=== PATIENT | male | born 1930 | race African-American/Black ===

== ENCOUNTER 2018-04-30 15:54 | Inpatient (IN) | payer MEDICARE, OTHER ==
[~2018-04-30] VITALS: Ht 188 cm; Wt 92.1 kg
[2018-04-30 16:16] VITALS: BP 154/97
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
--- NOTE | 2018-04-30 16:19 | ER.PDOC ---
General Chief Complaint: Medical Clearance Stated Complaint: MEDICAL CLEARANCE/ worsening dementia TRAVEL OUT OF US: No Time seen by MD: 16:22 Source: patient Exam Limitations: no limitations History of Present Illness Timing/Duration: 1 week Severity: moderate Modifying Factors: improves with rest Associated Symptoms: denies symptoms Allergies: Coded Allergies: No Known Allergies (Unverified , 04/30/18) Home Meds Active Scripts Trazodone Hcl (TRAZODONE HCL) 50 Mg Tablet, 50 MG PO HS for 30 Days, TABLET Prov:VIRGIE PARKS DATA REVIEW SPECIALIST 05/07/18 Risperidone (RISPERDAL) 0.25 Mg Tablet, 0.25 MG PO BID for 30 Days, TABLET Prov:VIRGIE PARKS DATA REVIEW SPECIALIST 05/07/18 Past Medical History Medical History: no pertinent history Surgical History: other Social History Smoking: non-smoker Alcohol Use: none Drug Use: none Reviewed Nursing Reviewed: Vital Signs, Abn. Noted Review of Systems All Other Systems: Reviewed and Negative Physical Exam General Appearance: No Apparent Distress EENT: eyes nml inspection Neck: Non-Tender Respiratory: chest non-tender CVS: reg rate & rhythm Gastrointestinal: Normal Bowel Sounds Rectal: Normal Exam Extremities: Normal Range of Motion Neurologic/Psychiatric: before school II-XII NML as Tested Skin: Normal Color Lymphatic: No Adenopathy Results/Orders Results/Orders Laboratory Tests Test 04/30/18 16:15 04/30/18 16:25 Urine Collection Type UNKNOWN Urine Color YELLOW (YELLOW) Urine Appearance SLIGHTLY CLOUDY (CLEAR) Urine Bilirubin NEGATIVE MG/DL (NEGATIVE) Urine Ketones 5 mg/dL (NEGATIVE) Urine Specific [place] 1.025 (1.005-1.035) Urine pH 5 (5.0-6.0) Urine Protein 15 mg/dL (NEGATIVE) Urine Urobilinogen NORMAL (NEGATIVE) Urine Nitrate NEGATIVE (NEGATAIVE) Urine Leukocyte Esterase NEGATIVE (NEGATIVE) Urine Blood 25 1+ (NEGATIVE) Urine RBC 2-5 RBC/HPF (NONE SEEN) Urine WBC 0-2 WBC/HPF (0-2) Urine Squamous Epithelial Cells RARE #/HPF (FEW) Urine Amorphous Sediment SMALL (NONE SEEN) Urine Bacteria FEW (NONE SEEN) Urine Hyaline Casts 0-1 (NONE SEEN) Urine Fine Granular Casts 0-1 Urine Glucose NORMAL (NEGATIVE) Urine Opiates, Qualitative NEGATIVE ng/mL (CUT-OFF:300) Urine Methadone, Qualitative NEGATIVE ng/mL (CUT-OFF:300) Urine Amphetamine Qualitative NEGATIVE ng/mL (CUTOFF:1000) Urine Barbiturates, Qualitative NEGATIVE ng/mL (CUT-OFF:200) Urine Phencyclidine Screen NEGATIVE ng/mL (CUT-OFF:25) Urine MDMA (Ecstasy), Qualitative NEGATIVE ng/mL (CUT-OFF:300) Urine Benzodiazepines Screen NEGATIVE ng/mL (CUT-OFF:200) Urine Cocaine Qualitative NEGATIVE ng/mL (CUT-OFF:300) Ur Tetrahydrocannabinol (THC) Scrn NEGATIVE ng/mL (CUT-OFF:50) White Blood Count 5.6 10^3/uL (4.5-11.0) Red Blood Count 4.79 10^6/uL (4.50-5.90) Hemoglobin 13.7 g/dL (13.9-16.3) Hematocrit 42.7 % (37.0-53.0) Mean Corpuscular Volume 89.1 fL (78-100) Mean Corpuscular Hemoglobin 28.6 pg (26-34) Mean Corpuscular Hemoglobin Concent 32.1 g/dL (33-37) Red Cell Distribution Width 14.9 % (11.5-14.5) Platelet Count 211 10^3/uL (150-400) Mean Platelet Volume 9.9 fL (7.8-11.0) Neutrophils (%) (Auto) 47.8 % (41.0-85.0) Lymphocytes (%) (Auto) 41.9 % (24.0-44.0) Monocytes (%) (Auto) 9.5 % (5.0-12.0) Neutrophils # (Auto) 2.7 10^3/uL (1.8-7.7) Lymphocytes # (Auto) 2.3 10^3/uL (1.0-4.8) Monocytes # (Auto) 0.5 10^3/uL (0.3-0.8) Absolute Immature Granulocyte (auto 0.01 10^3 u/L (0-2) Eosinophils % 0.4 % (0.0-5.0) Basophils % 0.2 % (0.0-0.2) Basophils # 0.0 10^3/uL (0.0-0.1) Eosinophil Count 0.0 10^3/uL (0.0-0.2) Prothrombin Time 10.4 SEC (9.8-11.9) Prothrombin Time INR (Non-Therap) 1.0 Activated Partial Thromboplast Time 21.8 SEC (24.67-30.72) Sodium Level 139 mmol/L (132-145) Potassium Level 3.8 mmol/L (3.6-5.2) Chloride Level 104.0 mmol/L (96-109) Carbon Dioxide Level 26.3 mmol/L (20.0-32) Anion Gap 12.5 Blood Urea Nitrogen 25 mg/dL (7-18) Creatinine 1.18 mg/dL (0.59-1.40) Estimated GFR () 70.5 (>/=60) BUN/Creatinine Ratio 21.0 Glucose Level 129 mg/dL (70-110) Calcium Level 9.6 mg/dL (8.4-10.5) Total Bilirubin 0.6 mg/dL (0.2-1.0) Aspartate Amino Transf (AST/SGOT) 26 U/L (0-35) Alanine Aminotransferase (ALT/SGPT) 34 U/L (12-78) Alkaline Phosphatase 105 U/L (50-136) Total Creatine Kinase 386 U/L (39-308) Troponin I < 0.02 ng/mL (0.00-0.05) Pro-B-Type Natriuretic Peptide 20 pg/mL (0-450) Total Protein 8.7 g/dL (6.4-8.2) Albumin 4.8 g/dL (3.4-5.0) Globulin 3.9 Vitamin B12 Level 377 pg/mL (193-986) Thyroid Stimulating Hormone (TSH) 2.630 mIU/mL (0.358-3.740) Percent Immature Gran (Cell Imm) 0.20 % (0.00-0.50) Microbiology Date/Time Source Procedure Growth Status 04/30/18 16:15 Urine,Void Urine Culture - Final Complete EKG/XRAY/CT/US EKG: NSR Course Sepsis Screening Results: Posi: POSITIVE SEPSIS RISK Vitals & review Data Vital Sign - Last 24 Hours 04/30/18 04/30/18 04/30/18 04/30/18 16:13 16:14 16:16 17:24 Temp 97.6 97.6 97.6 97.6 97.6 97.6 97.6 97.6 Pulse 96 96 96 96 Resp 18 18 18 18 B/P (MAP) 154/97 (116) 154/76 (102) Pulse Ox 94 94 94 O2 Delivery Room Air Room Air Room Air Laboratory Tests Test 04/30/18 16:15 04/30/18 16:25 Urine Collection Type UNKNOWN Urine Color YELLOW Urine Appearance SLIGHTLY CLOUDY Urine Bilirubin NEGATIVE MG/DL Urine Ketones 5 mg/dL Urine Specific [place] 1.025 Urine pH 5 Urine Protein 15 mg/dL Urine Urobilinogen NORMAL Urine Nitrate NEGATIVE Urine Leukocyte Esterase NEGATIVE Urine Blood 25 1+ Urine RBC 2-5 RBC/HPF Urine WBC 0-2 WBC/HPF Urine Squamous Epithelial Cells RARE #/HPF Urine Amorphous Sediment SMALL Urine Bacteria FEW Urine Hyaline Casts 0-1 Urine Fine Granular Casts 0-1 Urine Glucose NORMAL Urine Opiates, Qualitative NEGATIVE ng/mL Urine Methadone, Qualitative NEGATIVE ng/mL Urine Amphetamine Qualitative NEGATIVE ng/mL Urine Barbiturates, Qualitative NEGATIVE ng/mL Urine Phencyclidine Screen NEGATIVE ng/mL Urine MDMA (Ecstasy), Qualitative NEGATIVE ng/mL Urine Benzodiazepines Screen NEGATIVE ng/mL Urine Cocaine Qualitative NEGATIVE ng/mL Ur Tetrahydrocannabinol (THC) Scrn NEGATIVE ng/mL White Blood Count 5.6 10^3/uL Red Blood Count 4.79 10^6/uL Hemoglobin 13.7 g/dL Hematocrit 42.7 % Mean Corpuscular Volume 89.1 fL Mean Corpuscular Hemoglobin 28.6 pg Mean Corpuscular Hemoglobin Concent 32.1 g/dL Red Cell Distribution Width 14.9 % Platelet Count 211 10^3/uL Mean Platelet Volume 9.9 fL Neutrophils (%) (Auto) 47.8 % Lymphocytes (%) (Auto) 41.9 % Monocytes (%) (Auto) 9.5 % Neutrophils # (Auto) 2.7 10^3/uL Lymphocytes # (Auto) 2.3 10^3/uL Monocytes # (Auto) 0.5 10^3/uL Absolute Immature Granulocyte (auto 0.01 10^3 u/L Eosinophils % 0.4 % Basophils % 0.2 % Basophils # 0.0 10^3/uL Eosinophil Count 0.0 10^3/uL Prothrombin Time 10.4 SEC Prothrombin Time INR (Non-Therap) 1.0 Activated Partial Thromboplast Time 21.8 SEC Sodium Level 139 mmol/L Potassium Level 3.8 mmol/L Chloride Level 104.0 mmol/L Carbon Dioxide Level 26.3 mmol/L Anion Gap 12.5 Blood Urea Nitrogen 25 mg/dL Creatinine 1.18 mg/dL Estimated GFR () 70.5 BUN/Creatinine Ratio 21.0 Glucose Level 129 mg/dL Calcium Level 9.6 mg/dL Total Bilirubin 0.6 mg/dL Aspartate Amino Transf (AST/SGOT) 26 U/L Alanine Aminotransferase (ALT/SGPT) 34 U/L Alkaline Phosphatase 105 U/L Total Creatine Kinase 386 U/L Troponin I < 0.02 ng/mL Pro-B-Type Natriuretic Peptide 20 pg/mL Total Protein 8.7 g/dL Albumin 4.8 g/dL Globulin 3.9 Vitamin B12 Level 377 pg/mL Thyroid Stimulating Hormone (TSH) 2.630 mIU/mL Percent Immature Gran (Cell Imm) 0.20 % Microbiology 04/30/18 Urine Culture - Final, Complete Departure Time of Disposition: 17:00 Disposition: 01 HOME, SELF-CARE Impression: Primary Impression: Dementia Condition: Stable Referrals: PCP,UNKNOWN (PCP) PRIMARY CARE PROVIDER Scripts Trazodone Hcl (TRAZODONE HCL) 50 Mg Tablet 50 MG PO HS for 30 Days, TABLET Prov: VIRGIE PARKS DATA REVIEW SPECIALIST 05/07/18 Risperidone (RISPERDAL) 0.25 Mg Tablet 0.25 MG PO BID for 30 Days, TABLET Prov: VIRGIE PARKS DATA REVIEW SPECIALIST 05/07/18 Duration or Time Spent with Pa: 2 hrs MARISSA CID MD Apr 30, 2018 16:19
--- NOTE | 2018-04-30 16:23 | PCM.EKG ---
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
[2018-04-30 16:33] LABS: BASOPHIL % 0.2 % (0.0-0.2); EOSINOPHIL % 0.4 % (0.0-5.0); HEMOGLOBIN 13.7 g/dL (13.9-16.3); LYMPHOCYTES # 2.3 10^3/uL (1.0-4.8); LYMPHOCYTES % 41.9 % (24.0-44.0); MEAN CELL HGB 28.6 pg (26-34); MEAN CELL HGB CONCENTRATION 32.1 g/dL (33-37); MEAN CORP VOLUME 89.1 fL (78-100); MEAN PLATELET VOLUME 9.9 fL (7.8-11.0); MONOCYTES # 0.5 10^3/uL (0.3-0.8); MONOCYTES % 9.5 % (5.0-12.0); NEUTROPHIL # 2.7 10^3/uL (1.8-7.7); NEUTROPHILS % 47.8 % (41.0-85.0); RED CELL DISTRIBUTION WIDTH 14.9 % (11.5-14.5); WHITE BLOOD CELL 5.6 10^3/uL (4.5-11.0)
--- NOTE | 2018-04-30 16:37 | DIREP ---
PROCEDURE:CHEST 1 VIEW COMPARISON:None. INDICATIONS:medical clearance FINDINGS: LUNGS/PLEURA:No significant pulmonary parenchymal abnormalities. No effusions. VASCULATURE:Normal. Unremarkable pulmonary vasculature. CARDIAC:Normal. No cardiac silhouette abnormality or cardiomegaly. MEDIASTINUM:Atherosclerotic aorta with no visible aneurysm. BONES:Degenerative changes of the spine and shoulders. OTHER:Negative. CONCLUSION:No acute cardiopulmonary disease . Dictated by: Chavo De Jesus M.D. on 04/30/2018 at 04:33 PM
[2018-04-30 16:52] LABS: APPEARANCE,URINE SLIGHTLY CLOUDY (CLEAR); BILIRUBIN,URINE NEGATIVE (NEGATIVE); UA COLOR YELLOW (YELLOW); UROBILINOGEN,URINE NORMAL (NEGATIVE)
[2018-04-30 17:15] LABS: ALANINE AMINOTRANSFERASE(ML) 34 U/L (12-78); ALKALINE PHOSPHATASE 105 U/L (50-136); ASPARTATE AMINO TRANSFERASE 26 U/L (0-35); CALCIUM 9.6 mg/dL (8.4-10.5); CARBON DIOXIDE 26.3 mmol/L (20.0-32); GLUCOSE 129 mg/dL (70-110)
--- NOTE | 2018-04-30 17:23 | NUR ---
JOE CID ON PHONE FOR PT ADMIT CONSULT. ORFALY ACCEPTED.
[2018-04-30 17:24] VITALS: BP 154/76
[2018-04-30 17:52] VITALS: BP 154/76
[2018-04-30] MEDS ORDERED: ATIVAN PO PRN (18:30)
[2018-04-30] MEDS ORDERED: HALDOL PO PRN (18:30)
[2018-04-30] MEDS ORDERED: HALDOL IM PRN (18:30)
[2018-04-30] MEDS ORDERED: ATIVAN IM PRN (18:30)
--- NOTE | 2018-04-30 19:30 | NUR ---
ADMISSION PT ADMITTED TO UNIT. SPOKE WITH DR GRANGER. PT SHOWING FLIGHT OF IDEAS AND FIXATED ON A [place] THAT HE LIVES CLOSE BY. PT REFUSES TO SPEAK WITH DAUGHTER OR ALLOW HER TO COME TO UNIT AT THIS TIME.
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
[2018-04-30 19:59] VITALS: BP 130/72
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
--- NOTE | 2018-04-30 20:16 | NUR ---
MMSE SCORE 4: FINDINGS INDICATE SEVERE IMPAIRMENT BUT AT THIS TIME PT DID NOT WANT TO FULLY PARTICIPATE IN ASSESSMENT. SW WILL REATTEMPT AT A LATER TIME IF PT IS ABLE TO ANSWER QUESTIONS APPROPRIATELY AND WANT TO PARTICIPATE IN ASSESSMENT. Addendum: 04/30/18 at 2022 by Namita DOE Amended: Links added.
--- NOTE | 2018-04-30 20:21 | NUR ---
BIOPSYCHOSOCIAL: NADER UNABLE TO COMPLETE BIOPSYCHOSOCIAL. PT'S DAUGHTER GAVE SOME HISTORY BEFORE SHE LEFT. PT DID NOT WANT TO PARTICIPATE IN ASSESSMENTS AT THIS TIME AND UNABLE TO ANSWER APPROPRIATELY AT THIS TIME. NADER WILL REATTEMPT AT A LATER TIME IF PT IS ABLE AND WILLING TO PARTICIPATE. Addendum: 04/30/18 at 2022 by Namita DOE Amended: Links added.
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
[2018-04-30] MEDS: RISPERDAL PO SCH (20:41)
[2018-04-30] MEDS: DESYREL PO SCH (20:41)
--- NOTE | 2018-05-01 04:09 | NUR ---
PIRP- P- ALTERED THOUGHT PROCESS,ALTERATION IN MOOD AND SLEEP DISTURBANCE AND ELOPEMENT RISK. I- PROVIDE MEDICATION ORDERED,PROVIDE SAFE AND SUPPORTIVE ENVIRONMENT, Q 15 MIN. MONITORING, PROVIDED 1:1 INTERVENTION ALLOWING PT. TO EXPRESS THOUGHTS AND FEELINGS. R- PT. WAS ORIENTED TO NAME AND STATED ZELDA JUST PASSED BUT DID NOT SAY THE MONTH WHEN ASKED AND STATED IT WAS 17 WHEN ASKED THE YEAR. PT. ONLY ANSWERED THE QUESTIONS HE WANTED TO. REFUSED SKIN ASSESSMENT,TO GIVE STAFF HIS CELL PHONE,CHECK BOOK ,WALLET AND BELT. HE DENIED DEPRESSION,ANXIETY,PAIN AND SI. DID NOT EAT THE DINNER MEAL PROVIDED BUT DID EAT A PACKAGE OF POTATO CHIPS AND DRANK A SODA POP. PT. EXPRESSED THAT HE DID NOT WANT TO BE HERE AND THAT HIS CAR WAS OUTSIDE AND HE WAS GOING TO BE LEAVING. HE STATED HE HAD NOT HAD FLU VACCINE AND STATED HE WOULD LIKE TO HAVE IT TOMORROW BEFORE HE GOES HOME. PT. WANDERED IN THE HALLWAY AT TIMES ASKING WHERE THE TRANSPORTATION WAS AND ASKED TO TALK TO SOMEONE IN CHARGE OF TRANSPORTATION. DIRECTOR CASE,MARGI VILA, VISITED WITH PT. RESTING IN BED WITH EYES CLOSED AT THIS TIME. P- WILL CONTINUE WITH CURRENT TX. PLAN.
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
[2018-05-01 08:23] VITALS: BP 133/59
[2018-05-01] MEDS: RISPERDAL PO SCH ×2 (09:27→20:04)
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
--- NOTE | 2018-05-01 11:04 | PRM.PN ---
Mood: UP AND DOWN Sleep: SLEPT 6.75 HOURS LAST NIGHT Appetite: NORMAL APPETITE Suidical thoughts: NONE REPORTED Homicidal thoughts: NONE REPORTED Recent stressors: STRESS OF MENTAL ILLNESS Family support: DAUGHTER THAT LIVES IN [place] Aggressive Behavior: NONE REPORTED Ability to Perform ADL'sc: ABLE TO PERFORM ADLS Psychotic sympstoms: DELUSIONAL THINKING, PARANOIA, DENIES HALLUCINATIONS Manic Symptoms: MOOD SWINGS Living situation: LIVES BY HIMSELF IN [place] Illicit Drug usec: NONE REPORTED Alcoholo use: NONE REPORTED Tobacco use: NONE REPORTED Anxity Symptoms: MODERATE ANXIETY LEVEL Anger/Irritablility: SOME ANGER AND IRRITABILITY Muscle Strength & Tone: WNL Gait & Station: WN Appearance: Well groomed/hygience, Casual attire, Appears age stated Attitude & Behaviour: Uncooperative, Good eye contact Mood & Affect: Euthymic/appr/congruent, Iabile Orientation: Disoriented to place, Disoriented to situation Attention/Concentration: Fair attention, Fair concentration Speech: Reg rate/vol/rhyth/prosod Judgement/Insight: Poor judgement, Poor insight Thought Process: Linear/goal directed Language: Georgian Thought content/Abnormal/Psych: Delusions Fund of Knowledge: Other Associations: PABLITO Memory (recent and remote): Recent memory repaired, Remote memory repaired Constitutional: None Neurological: None Psychiatric: Anxious, Psychosis [place] I: DELUSIONAL DISORDER, DEMENTIA, ANXIETY [place] II: DEFERRED [place] III: REFER TO PMH/MEDICAL CHART [place] IV: STRESS OF MENTAL ILLNESS [place] V: GAF=25 Assessment/Plan Assessment/Plan Assessment/Plan Vital Signs Date Time Temp Pulse Resp B/P (MAP) Pulse Ox O2 Delivery O2 Flow Rate FiO2 05/01/18 08:23 97.9 67 18 133/59 (83) 96 Room Air 97.9 Allergies Coded Allergies No Known Allergies (Tejsnmmqdy75/28/18) I & O 04/30/18 16:14 Thru 05/01/18 10:00 Intake Total 912 ml Balance 912 ml Current Medications Medications (Trade) Dose Ordered Sig/Hugh Route Start Time Stop Time Status Last Admin Dose Admin Risperidone (Risperdal) 0.25 mg BID PO 04/30/18 21:00 05/30/18 20:59 05/01/18 09:27 0.25 MG Trazodone HCl (Desyrel) 50 mg HS PO 04/30/18 21:00 05/30/18 20:59 04/30/18 20:41 50 MG THE PATIENT WAS SEEN BY DR. GRANGER VIA TELEMEDICINE EQUIPMENT ALONG WITH NURSING STAFF. THE PATIENT SLEPT WELL LAST NIGHT. THE PATIENT HAS A NORMAL APPETITE. THE PATIENT HAS BEEN TAKING HIS MEDICATIONS. THE PATIENT REPORTS HIS MOOD IS "FINE." THE PATIENT WAS VERY TALKATIVE. THE PATIENT WAS ABLE TO STATE HIS NAME. THE PATIENT WAS NOT HAVING MANIC OR HYPOMANIC SYMPTOMS TODAY. THE PATIENT DENIES HALLUCINATIONS. THE PATIENT WAS REPORTEDLY HAVING HALLUCINATIONS AND DELUSIONS IN THE RECENT PAST. THE PATIENT WAS DISORIENTED TO PLACE, TIME, AND SITUATION TODAY. HE KNEW THE DAY WAS THURSDAY. HE KNEW HE WAS IN [place]. ASSESSMENT: DELUSIONAL DISORDER; GENERALIZED ANXIETY DISORDER; DEMENTIA WITH BEHAVIOR PROBLEMS PLAN: 1) CONTINUE BEHAVIORAL HEALTH MANAGEMENT. 2) CONTINUE CURRENT MEDICATIONS. THE PATIENT AND STAFF WERE AGREEABLE WITH THE PLAN. 30 MINUTES SPENT IN SUPPORTIVE THERAPY AND INSIGHT ORIENTED THERAPY. DR. GRANGER SPOKE WITH THE PATIENT'S DAUGHTER THE PATIENT DENIES SI OR HI. Problems: (1) Delusional disorder Status: Acute ICD Code: F22 - Delusional disorders SNOMED: 61106169 (2) Dementia Status: Acute ICD Code: F03.90 - Unspecified dementia without behavioral disturbance SNOMED: [id number] Patient History: Patient reports no known family medical history. ARELI GRANGER IV, MD May 01, 2018 11:04
--- NOTE | 2018-05-01 12:40 | NUR ---
DR. JOE DIAZ HERE TO SEE PATIENT. NO NEW ORDERS RECEIVED @ THIS TIME.
--- NOTE | 2018-05-01 16:11 | NUR ---
PIRP P: ALTERED THOUGHT PROCESS, ALTERATION IN MOOD, CONFUSION I: MONITOR FOR CHANGES IN USUAL BEHAVIOR, Q15 MIN MONITORING, REDIRECT WITH VERBALIZATION, GIVE CLEAR AND SIMPLE INSTRUCTIONS, PROVIDE 1:1 TO ENCOURAGE EXPRESSION OF FEELINGS, PROVIDE TASK-ORIENTED ACTIVITIES, GIVE MEDICATIONS ORDERED, EDUCATE REGARDING INVOLUNTARY ADMISSION, ASSESS FOR DELUSIONS, ASSIST WITH DIFFERENTIATING BETWEEN INTERNAL AND EXTERNAL REALITY R: PT HAS BEEN PLEASANT MAJORITY OF SHIFT, IRRITABLE @ TIMES WITH VERBAL REDIRECTION. HAS NOT EXHIBITED THREATENING OR COMBATIVE BEHAVIORS, HAS NOT BEEN AN ELOPEMENT RISK. DENIES FEELINGS OF DEPRESSION, ANXIETY, SI/HI. DENIES HAVING HALLUCINATIONS, EXHIBITS VARYING DELUSIONS R/T CIRCUMSTANCES LEADING TO ADMISSION. EXHIBITS POOR SHORT-TERM MEMORY, HAS CIRCUMSTANTIAL SPEECH. HAS TAKEN MEDICATIONS ORDERED, HAS NOT PARTICIPATED IN GROUP ACTIVITIES, BUT DOES INITIATE INTERACTION WITH STAFF ON 1:1 BASIS. INTERACTS APPROPRIATELY WHEN APPROACHED. ALERT AND ORIENTED TO SELF, STATE, AND MONTH. P: CONTINUE TO PROVIDE DISCHARGE PLANNING INFORMATION AND INVOLVE PATIENT IN TREATMENT PLAN.
--- NOTE | 2018-05-01 19:37 | HPH ---
ADMIT DATE: 04/30/2018 The patient admitted to the behavioral health unit bed #212. CHIEF COMPLAINT: Psychosis with agitation. HISTORY OF PRESENT ILLNESS: This is an 87-year-old male who is admitted to our hospital to the Behavioral Unit for adjustment and treatment for his psychosis. The patient has been significantly agitated. However, according to his daughter, he has not been taking any medications. Today, I could obtain some history from him, which included that he did have in the past prostate cancer for which he had surgery and followed by chemotherapy. Otherwise, he denies any other medical problem. PAST MEDICAL HISTORY: Prostate cancer. ALLERGIES: No known drug allergy. HOME MEDICATIONS: None. SOCIAL HISTORY: The patient does not smoke, drink or use any illicit drugs. He is a retired . REVIEW OF SYSTEMS: Fourteen systems reviewed with the patient, all were negative except for what has been mentioned above. PHYSICAL EXAMINATION: VITAL SIGNS: Temperature 97.6, pulse 96, respiration 18, blood pressure 154/76, O2 sat 94% on room air. HEENT: Pupils reactive. Conjunctivae intact. Sclerae are anicteric. Nares patent. Earlobes intact. Throat clear. NECK: No JVD, no thyromegaly, no bruits, no lymphadenopathy, no masses. No tracheal deviation. HEART: Regular rhythm, no murmur, no gallop. CHEST: Clear. No rales, no crackles. Breath sounds are audible on both sides. ABDOMEN: Soft. No hepatosplenomegaly. No organomegaly. Bowel sounds active, no tenderness. EXTREMITIES: No cyanosis, clubbing or edema. Pulses are palpated at all sites with good amplitude. MUSCULOSKELETAL: No swelling, no tenderness, no deformities in the joints. Hand human resources benefits administrator is intact bilaterally. NEUROLOGIC: CN 2 to CN 12 are intact. No motor or sensory deficit. Deep tendon reflexes are equal bilaterally. SKIN: No ulcers, no rashes, no paleness. Normal skin turgor. MENTAL STATUS: The patient is awake, alert, oriented for time, place and person. LABORATORY DATA: CBC: White count 5.6, hemoglobin 13.7, hematocrit 42.7, platelet 211. Chemistry: Sodium 139, potassium 3.8, chloride 104, CO2 of 26.3, anion gap 12.5, BUN 25, creatinine 1.18, glucose 129 and hemoglobin A1c is 6.9. The TSH 2.63. The toxicology screening is negative. The chest x-ray unremarkable. DIAGNOSES: 1. Psychosis/bipolar disorder. 2. History of prostate cancer, status post surgery and chemotherapy in the past. 3. Elevated hemoglobin A1c, which is consistent with diabetes mellitus type 2. However, apparently his diabetes is currently controlled with diet, I am going to order for him 1800 calorie ADA diet and we will monitor closely. 4. Hypertension, which is borderline now. We will monitor closely and we may need to add some blood pressure medications down the road. LEONEL DIAZ MD DR: VIVIANA/russell JOB# [id number]
[2018-05-01 19:39] VITALS: BP_SYST 104; BP_SYST 127; BP_DIAS 61; BP_DIAS 72
[2018-05-01] MEDS: DESYREL PO SCH (20:04)
--- NOTE | 2018-05-02 04:21 | NUR ---
PIRP P: ALTERED THOUGHT PROCESS, ALTERATION IN MOOD, CONFUSION I: Q15 MONITORING, MONITORING FOR CHANGES IN BEHAVIOR, ASSESS FOR DELUSIONS, ENCOURAGE EXPRESSION OF FEELINGS, REORIENT NEEDED. R: PT HAS BEEN PLEASANT DURING THIS SHIFT WITH NO COMBATIVE OR VIOLENT BEHAVIOR, PT STAYED IN DAY ROOM FOR SEVERAL HOURS WATCHING TV AND INTERACTING WITH STAFF, DENIES ANY FEELINGS OF DEPRESSION OR ANXIETY, PT DOES STATE HE IS READY TO GO HOME, HAS NOT ATTEMPTED ELOPEMENT, HAS TAKEN MEDICATIONS ORDERED. P: CONTINUE TO PROVIDE DISCHARGE PLANNING INFORMATION AND INVOLVE PATIENT IN TREATMENT PLAN.
[2018-05-02 08:08] VITALS: BP 115/59
[2018-05-02] MEDS: RISPERDAL PO SCH ×2 (09:41→20:30)
--- NOTE | 2018-05-02 10:43 | PRM.PN ---
Mood: "ALRIGHT", DENIES FEELING DEPRESSED Sleep: SLEEPING WELL AT NIGHT Appetite: LOW/NORMAL APPETITE Suidical thoughts: NONE REPORTED Homicidal thoughts: NONE REPORTED Recent stressors: STRESS OF MENTAL ILLNESS Family support: DAUGHTER IS VERY SUPPORTIVE, GIRLFRIEND IN [place] Aggressive Behavior: NONE REPORTED Ability to Perform ADL'sc: YES Psychotic sympstoms: SOME DELUSIONAL THINKING RELATED TO HIS DEMENTIA, NO HALLUCINATIONS Manic Symptoms: NONE REPORTED Living situation: LIVES BY HIMSELF IN [place], [place] Illicit Drug usec: NONE REPORTED Alcoholo use: NONE REPORTED Tobacco use: NONE REPORTED Anxity Symptoms: MILD ANXIETY LEVEL Anger/Irritablility: LIMITED ANGER AND IRRITABILITY Muscle Strength & Tone: WNL Gait & Station: WNL Appearance: Well groomed/hygience, Casual attire, Normal weight, Appears age stated Attitude & Behaviour: Cooperative/Pleasant, Good eye contact Mood & Affect: Euthymic/appr/congruent Orientation: Disoriented to place, Disoriented to time, Disoriented to situation Attention/Concentration: Fair attention, Fair concentration Speech: Reg rate/vol/rhyth/prosod Judgement/Insight: Poor judgement, Poor insight Thought Process: Linear/goal directed Language: Urdu Thought content/Abnormal/Psych: None/normal Fund of Knowledge: WNL Associations: WNL/Normal Associations Memory (recent and remote): Gross int/not form assess Constitutional: None Neurological: None Psychiatric: None [place] I: DELUSIONAL DISORDER, DEMENTIA, GENERALIZED ANXIETY DISORDER [place] II: DEFERRED [place] III: REFER TO PMH/MEDICAL CHART [place] IV: STRESS OF MENTAL ILLNESS [place] V: GAF=30 Assessment/Plan Assessment/Plan Assessment/Plan Vital Signs Date Time Temp Pulse Resp B/P (MAP) Pulse Ox O2 Delivery O2 Flow Rate FiO2 05/02/18 08:08 98.0 58 18 115/59 (77) 94 Room Air 98.0 Allergies Coded Allergies No Known Allergies (Maggwjjxpv00/28/18) I & O 04/30/18 16:14 Thru 05/02/18 10:19 Intake Total 2086 ml Balance 2086 ml THE PATIENT WAS SEEN BY DR. GRANGER VIA TELEMEDICINE EQUIPMENT ALONG WITH NURSING STAFF. THE PATIENT SLEPT 6 HOURS LAST NIGHT. THE PATIENT HAS A LOW/NORMAL APPETITE. THE PATIENT HAS BEEN TAKING HIS MEDICATIONS WITHOUT SIDE EFFECTS. THE PATIENT IS AN INVOLUNTARY ADMISSION. THE PATIENT LIVES IN [place], [place]. THE PATIENT DENIES AUDITORY OR VISUAL HALLUCINATIONS. HE HAS HAD HALLUCINATIONS IN THE RECENT PAST. THE PATIENT HAS HAD ODD AND DELUSIONAL THINKING IN THE RECENT PAST. THE PATIENT'S DAUGHTER IS HELPING WITH DISCHARGE PLANNING. THE PATIENT IS A . THE PATIENT IS NOT HAVING MANIC OR HYPOMANIC SYMPTOMS. THE PATIENT REPORTS A STABLE ANXIETY LEVEL. THE PATIENT HAS BEEN PARTICIPATING IN GROUPS. THE PATIENT SHOULD NOT BE DRIVING A VEHICLE. ASSESSMENT: DELUSIONAL DISORDER; GENERALIZED ANXIETY DISORDER; DEMENTIA WITH BEHAVIOR PROBLEMS PLAN: 1) CONTINUE BEHAVIORAL HEALTH MANAGEMENT AT THE [facility]. 2) CONTINUE CURRENT MEDICATIONS. STAFF AGREEABLE WITH THE PLAN. SUPPORTIVE THERAPY GIVEN. THE PATIENT DENIES SI OR HI. SAFETY PLANS WERE DISCUSSED. RESEARCH EXECUTIVE WORKING WITH DAUGHTER ON DISCHARGE PLANNING. Problems: (1) Delusional disorder Status: Acute ICD Code: F22 - Delusional disorders SNOMED: 66302190 (2) Dementia Status: Acute ICD Code: F03.90 - Unspecified dementia without behavioral disturbance SNOMED: [id number] Patient History: Patient reports no known family medical history. ARELI GRANGER IV, MD May 02, 2018 10:43
--- NOTE | 2018-05-02 10:45 | NUR ---
TELEMED PT WAS SEEN BY DR. GRANGER VIA TELEMED. NO NEW ORDERS RECEIVED @ THIS TIME.
--- NOTE | 2018-05-02 17:12 | NUR ---
PIRP P: ALTERED THOUGHT PROCESS, ALTERATION IN MOOD, CONFUSION I: MONITOR FOR CHANGES IN USUAL BEHAVIOR, Q15 MIN MONITORING, GIVE CLEAR AND SIMPLE INSTRUCTIONS, TEACH APPROPRIATE BEHAVIORS, SET CLEAR AND APPROPRIATE BOUNDARIES, PROVIDE 1:1 TO ENCOURAGE EXPRESSION OF FEELINGS, ASSESS FOR DELUSIONS, ASSESS REASONS FOR IRRITABILITY, RE-ORIENT TO SURROUNDINGS NEEDED, GIVE MEDICATIONS ORDERED R: PT HAS PLEASANT AFFECT, IRRITABLE @ TIMES WITH REDIRECTION AND RE-ORIENTATION. DENIES DEPRESSION, ANXIETY, SI/HI. NO HALLUCINATIONS NOTED, EXHIBITS VARYING DELUSIONS R/T CONFUSION. PT VOICES WISHES TO "GET OUT" AND "GET BACK ON THE HIGHWAY," PT IS DIFFICULT TO REDIRECT WITH VERBALIZATION @ TIMES. HAS NOT BEEN EXIT SEEKING, HAS NOT EXHIBITED THREATENING OR COMBATIVE BEHAVIORS. CONTINUES TO HAVE CIRCUMSTANTIAL SPEECH AND DISORIENTATION. TAKES MEDICATIONS ORDERED WITH COAXING, DOES NOT PARTICIPATE IN GROUP ACTIVITIES. P: RE-ORIENT TO SURROUNDINGS AND SITUATION NEEDED.
[2018-05-02 20:09] VITALS: BP 157/89
[2018-05-02] MEDS: DESYREL PO SCH (20:30)
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
[2018-05-03 07:30] VITALS: BP 127/71
[2018-05-03] MEDS: RISPERDAL PO SCH ×2 (09:10→20:04)
--- NOTE | 2018-05-03 11:21 | NUR ---
[place] TEAM PT WAS SEEN BY DR. GRANGER VIA TELEMED. NO NEW ORDERS RECEIVED @ THIS TIME.
--- NOTE | 2018-05-03 11:26 | PRM.PN ---
Mood: UP AND DOWN, CAN BE IRRITABLE Sleep: SLEPT 4 HOURS LAST NIGHT Appetite: NORMAL APPETITE, "WANTS TO LOSE WEIGHT" Suidical thoughts: NONE REPORTED Homicidal thoughts: NONE REPORTED Recent stressors: STRESS OF MENTAL ILLNESS Family support: DAUGHTER IS VERY SUPPORTIVE Aggressive Behavior: NONE REPORTED Ability to Perform ADL'sc: YES Psychotic sympstoms: DELUSIONAL THINKIGN RELATED TO HIS DEMENTIA Manic Symptoms: NONE REPORTED Living situation: LIVES BY HIMSELF IN [place], [place], HE IS A Illicit Drug usec: NONE REPORTED Alcoholo use: NONE REPORTED Tobacco use: NONE REPORTED Anxity Symptoms: MODERATE ANXIETY LEVEL Anger/Irritablility: LIMITED ANGER, SOME IRRITABILITY Muscle Strength & Tone: WNL Gait & Station: WNL Appearance: Well groomed/hygience, Casual attire, Normal weight, Appears age stated Attitude & Behaviour: Cooperative/Pleasant, Good eye contact Mood & Affect: Euthymic/appr/congruent, Iabile Orientation: Disoriented to place, Disoriented to time, Disoriented to situation Attention/Concentration: Fair attention, Fair concentration Speech: Reg rate/vol/rhyth/prosod Judgement/Insight: Poor judgement, Poor insight Thought Process: Loose, Tangential Language: Setswana Thought content/Abnormal/Psych: Delusions Fund of Knowledge: WNL Associations: WNL/Normal Associations Memory (recent and remote): Recent memory repaired, Remote memory repaired Constitutional: Insomnia Neurological: None Psychiatric: None [place] I: DELUSIONAL DISORDER; GENERALIZED ANXIETY DISORDER; DEMENTIA WITH BEHAVIOR [place] II: DEFERRED [place] III: REFER TO PMH/MEDICAL CHART [place] IV: STRESS OF MENTAL ILLNESS, POOR MEMORY [place] V: GAF=30 Assessment/Plan Assessment/Plan Assessment/Plan Vital Signs Date Time Temp Pulse Resp B/P (MAP) Pulse Ox O2 Delivery O2 Flow Rate FiO2 05/03/18 07:30 97.9 57 18 127/71 (89) 92 97.9 05/02/18 20:09 Room Air Allergies Coded Allergies No Known Allergies (Venzltqxdn10/28/18) I & O 04/30/18 16:14 Thru 05/03/18 07:30 Intake Total 3262 ml Balance 3262 ml THE PATIENT WAS SEEN BY DR. GRANGER VIA TELEMEDICINE EQUIPMENT ALONG WITH THE TREATMENT TEAM. THE PATIENT SLEPT 4 HOURS LAST NIGHT. THE PATIENT HAS A NORMAL APPETITE. THE PATIENT WANTS TO LOSE WEIGHT. THE PATIENT REPORTS HIS MOOD IS "ALRIGHT." THE PATIENT DENIES FEELING DEPRESSED. THE PATIENT REPORTS A MODERATE ANXIETY LEVEL. THE PATIENT HAS BEEN TAKING HIS MEDICATIONS. THE PATIENT HAS BEEN PARTICIPATING IN GROUPS. THE PATIENT DENIES PARANOIA. THE PATIENT DENIES AUDITORY HALLUCINATIONS. THE PATIENT DENIES VISUAL HALLUCINATIONS. THE PATIENT DENIES MANIC OR HYPOMANIC SYMPTOMS. THE PATIENT STRUGGLES WITH CONFUSION. THE PATIENT KNEW TOMORROW WAS NEW YEARS DAY. THE PATIENT DID NOT KNOW THE YEAR. THE PATIENT DID NOT KNOW WHERE HE WAS TODAY. THE PATIENT DID NOT KNOW WHERE HE WAS TODAY. THE PATIENT WAS IN [place] BEFORE COMING INTO THIS FACILITY. THE PATIENT'S DAUGHTER IS WORKING ON DISCHARGE PLANNING. ASSESSMENT: DELUSIONAL DISORDER, GENERALIZED ANXIETY DISORDER, DEMENTIA WITH BEHAVIOR PROBLEMS PLAN: 1) CONTINUE BEHAVIORAL HEALTH MANAGEMENT AT THE [facility]. 2) CONTINUE MEDICATIONS AT CURRENT DOSES. THE PATIENT WAS AGREEABLE WITH THE PLAN. SUPPORTIVE THERAPY GIVEN. THE PATIENT DENIES SI OR HI. SAFETY PLANS WERE DISCUSSED. Problems: (1) Delusional disorder Status: Acute ICD Code: F22 - Delusional disorders SNOMED: 42032071 (2) Dementia Status: Acute ICD Code: F03.90 - Unspecified dementia without behavioral disturbance SNOMED: 63033605 Patient History: Patient reports no known family medical history. ARELI GRANGER IV, MD May 03, 2018 11:26
--- NOTE | 2018-05-03 17:13 | NUR ---
PIRP P: ALTERED THOUGHT PROCESS I: MONITOR FOR CHANGES IN USUAL BEHAVIOR, ASSESS FOR DELUSIONS, REDIRECT WITH VERBALIZATION, GIVE CLEAR AND SIMPLE INSTRUCTIONS, REINFORCE APPROPRIATE BEHAVIORS, PROVIDE SAFE AND SUPPORTIVE ENVIRONMENT, PROVIDE 1:1 TO ENCOURAGE EXPRESSION OF FEELINGS, ASSIST WITH DIFFERENTIATING BETWEEN INTERNAL AND EXTERNAL REALITY, Q15 MIN MONITORING R: PT IS ALERT AND ORIENTED TO SELF, MONTH, AND YEAR. UNABLE TO VERBALIZE WHY HE IS IN FACILITY, BELIEVES HE IS HERE BECAUSE HIS DAUGHTER CHANGED HER MIND ABOUT GOING TO [place] WITH HIM AND WANTING TO TAKE CONTROL OVER HIM D/T HER WORKING AT THE OR. PT IS DIFFICULT TO REDIRECT WITH VERBALIZATION, DOES NOT PARTICIPATE IN GROUP ACTIVITIES, BUT WILL SIT IN DAY ROOM WITH STAFF AND PEERS. INITIATES INTERACTION, HAS TAKEN MEDICATIONS ORDERED. EXHIBITS LOOSE ASSOCIATIONS WITH CIRCUMSTANTIAL SPEECH. P: CONTINUE TO REDIRECT WITH VERBALIZATION, ENCOURAGE PARTICIPATION IN GROUP ACTIVITIES.
[2018-05-03 19:33] VITALS: BP 128/69
[2018-05-03] MEDS: DESYREL PO SCH (20:04)
[2018-05-04 09:44] VITALS: BP 135/79
[2018-05-04] MEDS: RISPERDAL PO SCH ×2 (10:19→20:19)
--- NOTE | 2018-05-04 10:54 | NUR ---
TELEMED DR GRANGER SPOKE WITH DAUGHTER ON PHONE. PLAN TO DISCHARGE PT ON THURSDAY WITH DAUGHTER, AND TO GO TO [place] UNTIL THE WEATHER HAS CLEARED IN [place]. PT AGREES WITH THIS PLAN, AT THIS TIME. PT THEN SPOKE WITH DAUGHTER OVER PHONE AND STATED THAT HE IS SUPPOSE TO FLY FROM [place] TO [facility]. THIS NURSE RE ORIENTED PT TO DISCHARGE PLAN. PT VERBALIZES UNDERSTANDING
--- NOTE | 2018-05-04 11:01 | PRM.PN ---
Mood: "PRETTY GOOD", DENIES FEELING DEPRESSED Sleep: SLEPT WELL LAST NIGHT, NOT SLEEPING WELL RECENTLY Appetite: NORMAL APPETITE Suidical thoughts: NONE REPORTED Homicidal thoughts: NONE REPORTED Recent stressors: STRESS OF MENTAL ILLNES, STRESS OF POOR MEMORY Family support: HIS DAUGHTER IS VERY SUPPORTIVE AND HELPING HIM WITH PLACEMENT Aggressive Behavior: NONE REPORTED Ability to Perform ADL'sc: YES Psychotic sympstoms: DELUSIONAL THINKING RELATED TO HIS DEMENTIA Manic Symptoms: NONE REPORTED Living situation: LIVES IN [place], LIVES BY HIMSELF, WAS DRIVING HIMSELF Illicit Drug usec: NONE REPORTED Alcoholo use: NONE REPORTED Tobacco use: NONE REPORTED Anxity Symptoms: MILD ANXIETY LEVEL Anger/Irritablility: LIMITED ANGER AND IRRITABILITY Muscle Strength & Tone: WNL Gait & Station: WNL Appearance: Well groomed/hygience, Casual attire, Normal weight, Appears age stated Attitude & Behaviour: Cooperative/Pleasant, Good eye contact Mood & Affect: Euthymic/appr/congruent, Iabile Orientation: Disoriented to place, Disoriented to time, Disoriented to situation Attention/Concentration: Fair attention, Fair concentration Speech: Reg rate/vol/rhyth/prosod Judgement/Insight: Poor judgement, Poor insight Thought Process: Linear/goal directed Language: Trinidadian Thought content/Abnormal/Psych: Delusions Fund of Knowledge: WNL Associations: WNL/Normal Associations Memory (recent and remote): Recent memory repaired, Remote memory repaired Constitutional: None Neurological: None Psychiatric: None [place] I: DELUSIONAL DISORDER, DEMENTIA, GENERALIZED ANXIETY DISORDER [place] II: DEFERRED [place] III: REFER TO PMH/MEDICAL CHART [place] IV: STRESS OF MENTAL ILLNESS [place] V: GAF=30 Assessment/Plan Assessment/Plan Assessment/Plan Vital Signs Date Time Temp Pulse Resp B/P (MAP) Pulse Ox O2 Delivery O2 Flow Rate FiO2 05/04/18 09:44 97.8 58 20 135/79 (97) 95 Room Air 97.8 Allergies Coded Allergies No Known Allergies (Kzvrgokitn19/28/18) I & O 04/30/18 16:14 Thru 05/04/18 10:40 Intake Total 4933 ml Balance 4933 ml THE PATIENT WAS SEEN BY DR. GRANGER VIA TELEMEDICINE EQUIPMENT ALONG WITH THE TREATMENT TEAM. THE PATIENT SLEPT 9.25 HOURS LAST NIGHT. THE PATIENT HAS A NORMAL APPETITE. THE PATIENT ATE ALL HIS BREAKFAST THIS MORNING. THE PATIENT REPORTS HIS MOOD IS "PRETTY GOOD." THE PATIENT DENIES FEELING DEPRESSED TODAY. THE PATIENT REPORTS A STABLE ANXIETY LEVEL. THE PATIENT HAS BEEN TAKING HIS MEDICATIONS PER STAFF. THE PATIENT HAS BEEN PARTICIPATING IN GROUPS PER STAFF. THE PATIENT DENIES FEELING PARANOID. THE PATIENT DENIES AUDITORY HALLUCINATIONS. THE PATIENT DENIES VISUAL HALLUCINATIONS. THE PATIENT DENIES MANIC OR HYPOMANIC SYMPTOMS. THE PATIENT STRUGGLES WITH CONFUSION. THE PATIENT KNEW THE DATE TODAY. THE PATIENT DID NOT KNOW WHERE HE WAS TODAY. THE PATIENT WAS [place] BEFORE COMING INTO THIS FACILITY. THE PATIENT'S DAUGHTER IS WORKING ON DISCHARGE PLANNING. HE PLANS TO GO BACK TO [place] WITH A SITTER. HE SHOULD NOT BE DRIVING A CAR DUE TO HIS COGNITION. ASSESSMENT: DELUSIONAL DISORDER, GENERALIZED ANXIETY DISORDER, DEMENTIA WITH BEHAVIOR PROBLEMS PLAN: 1) CONTINUE BEHAVIORAL HEALTH MANAGEMENT AT THE [facility]. 2) CONTINUE MEDICATIONS AT CURRENT DOSES. THE PATIENT WAS AGREEABLE WITH THE PLAN. SUPPORTIVE THERAPY GIVEN. THE PATIENT DENIES SI OR HI. SAFETY PLANS WERE DISCUSSED. Problems: (1) Dementia Status: Acute ICD Code: F03.90 - Unspecified dementia without behavioral disturbance SNOMED: [id number] (2) Delusional disorder Status: Acute ICD Code: F22 - Delusional disorders SNOMED: [id number] Patient History: Patient reports no known family medical history. ARELI GRANGER IV, MD May 04, 2018 11:01
--- NOTE | 2018-05-04 16:49 | NUR ---
PIRP P: ALTERED THOUGHT PROCESS I: MONITOR FOR CHANGES IN USUAL BEHAVIOR, ASSESS FOR DELUSIONS, REDIRECT WITH VERBALIZATION, GIVE CLEAR AND SIMPLE INSTRUCTIONS, REINFORCE APPROPRIATE BEHAVIORS, PROVIDE SAFE AND SUPPORTIVE ENVIRONMENT, PROVIDE 1:1 TO ENCOURAGE EXPRESSION OF FEELINGS, ASSIST WITH DIFFERENTIATING BETWEEN INTERNAL AND EXTERNAL REALITY, Q15 MIN MONITORING R: PT HAS REMAINED IN A GOOD MOOD WITH A POSITIVE EFFECT. PT AGREES TO BEING DISCHARGED ON THURSDAY, TO GO TO [place] WITH HIS DAUGHTER UNTIL THE WEATHER HAS CLEARED IN [place]. P: CONTINUE WITH PLAN OF CARE TO DISCHARGED ON Thursday05/08/18
[2018-05-04 19:14] VITALS: BP 140/70
[2018-05-04] MEDS: DESYREL PO SCH (20:19)
--- NOTE | 2018-05-05 04:49 | NUR ---
-PIRP P: Altered thought process I: Q 15 minute monitoring, assess for hallucinations, monitor for changes in usual behavior, provide task oriented activities, provide 1:1 to encourage expression of feelings, give medications as ordered, provide safe and supportive environment. R: The patient presents with a bright and pleasant affect. He remained in day room prior to going to bed and interacted appropriately with staff and peers. The patient denies depression, suicidal or homicidal ideation, and hallucinations. The patient was compliant with evening medications. Thoughts are coherent compared to previous nights and speech is spontaneous. P: Continue with treatment plan. Will continue to monitor and maintain safety.
[2018-05-05 08:31] VITALS: BP 151/75
--- NOTE | 2018-05-05 08:45 | NUR ---
TELEMED PT SPOKE WITH DR GRANGER. STATES DEPRESSION 0/10 AND ANXIETY 0/10. NO NEW ORDERS RECEIVED AT THIS TIME. PLAN FOR DISCHARGE ON THURSDAY.
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
[2018-05-05] MEDS: RISPERDAL PO SCH ×2 (09:24→20:35)
--- NOTE | 2018-05-05 17:17 | NUR ---
PIRP P: ALTERED THOUGHT PROCESS I: MONITOR FOR CHANGES IN USUAL BEHAVIOR, ASSESS FOR DELUSIONS, REDIRECT WITH VERBALIZATION, GIVE CLEAR AND SIMPLE INSTRUCTIONS, REINFORCE APPROPRIATE BEHAVIORS, PROVIDE SAFE AND SUPPORTIVE ENVIRONMENT, PROVIDE 1:1 TO ENCOURAGE EXPRESSION OF FEELINGS, ASSIST WITH DIFFERENTIATING BETWEEN INTERNAL AND EXTERNAL REALITY, Q15 MIN MONITORING R: PT STATES MOOD IS GOOD AND DENIES SI. PT LIKES TO SIT AND REMINISCE ABOUT BEING YOUNGER AND BEING IN THE . NO BEHAVIORS NOTED. P: CONTINUE WITH PLAN OF CARE TO DISCHARGED ON Thursday05/08/18
[2018-05-05 19:10] VITALS: BP 100/63
[2018-05-05] MEDS: DESYREL PO SCH (20:35)
--- NOTE | 2018-05-06 04:16 | NUR ---
-PIRP P: Altered thought process I: Q 15 minute monitoring, assess for hallucinations, monitor for changes in usual behavior, provide task oriented activities, provide 1:1 to encourage expression of feelings, give medications as ordered, provide safe and supportive environment. R: The patient presents with a bright and pleasant affect. He remained in day room prior to going to bed and interacted appropriately with staff and peers. The patient denies depression, suicidal or homicidal ideation, and hallucinations. The patient was compliant with evening medications. The patient is coherent with spontaneous speech. No disturbance in sleep for the past three nights. The patient spoke with his daughter via phone. The daughter states the patient is "so much better". P: Will continue to monitor and maintain safety. Plan to discharge to daughter on 05/08/17 to safely transport back home.
[2018-05-06 07:52] VITALS: BP 146/86
[2018-05-06] MEDS: RISPERDAL PO SCH ×2 (08:14→20:36)
--- NOTE | 2018-05-06 14:29 | PRM.PN ---
Mood: DENIES DEPRESSION, STABLE Sleep: SLEPT WELL. Appetite: GOOD Suidical thoughts: DENIES Homicidal thoughts: DENIES Recent stressors: COGNITIVE DECLINE Family support: FAIR Aggressive Behavior: NONE NOTED Ability to Perform ADL'sc: GOOD Psychotic sympstoms: NONE NOTED Manic Symptoms: NONE Living situation: ALONE Illicit Drug usec: NONE Alcoholo use: NONE Tobacco use: NONE Family,PT,Surgical,&Current HX: (1) Dementia (2) Delusional disorder Anxity Symptoms: DENIES Anger/Irritablility: DENIES, NONE NOTED. Muscle Strength & Tone: WNL Gait & Station: WNL Appearance: Well groomed/hygience, Casual attire, Normal weight, Appears age stated Attitude & Behaviour: Cooperative/Pleasant, Good eye contact Mood & Affect: Euthymic/appr/congruent Attention/Concentration: Good attention, Good concentration Speech: Reg rate/vol/rhyth/prosod Judgement/Insight: Good judgement, Fair insight Thought Process: Linear/goal directed Language: Prydeinig Thought content/Abnormal/Psych: None/normal Fund of Knowledge: WN Associations: WNL/Normal Associations Memory (recent and remote): Recent memory repaired Constitutional: None Neurological: None Psychiatric: None [place] I: DELUSIONAL DISORDER, DEMENTIA [place] II: DEFERRED [place] III: SEE MEDICAL CHART/PMH [place] IV: DECREASED COGNITION [place] V: 35 Assessment/Plan Assessment/Plan Patient History: Patient reports no known family medical history. Plan Vital Signs Date Time Temp Pulse Resp B/P (MAP) Pulse Ox O2 Delivery O2 Flow Rate FiO2 05/06/18 07:52 97.8 66 20 146/86 (106) 98 Room Air 97.8 Allergies Coded Allergies Type Severity Reaction Last Updated Verified No Known Allergies 04/30/18 No Intake and Output 05/06/18 07:01 Intake Total 1564 ml Balance 1564 ml Intake Oral 1564 ml # Voids 5 # Bowel Movements 1 THE PATIENT WAS SEEN BY VIRGIE PARKS VIA TELEMEDICINE EQUIPMENT (SUPPORTED BY [facility]) ALONG WITH THE TREATMENT TEAM. HE REPORTS THAT HE IS EATING AND SLEEPING WELL. HE HAS A GOOD SENSE OF HUMOR. HE DENIES BEING DEPRESSED AND ANXIOUS. HE DENIES ANY PROBLEMS WITH HIS MEDICATIONS. HE IS DENIES AV/VH/SI/HI. HE IS VERY TALKATIVE. HE HAS NO ACUTE COMPLAINTS. HE REPORTS HAVING GOOD ENERGY. ASSESSMENT: DELUSIONAL DISORDER, DEMENTIA PLAN: 1. CONTINUE BEHAVIORAL HEALTH MANAGEMENT. PLAN TO DISCHARGE THURSDAY. 2. CONTINUE CURRENT MEDICATIONS PRESCRIBED. STAFF AGREEABLE WITH PLAN 3. ALL PATIENT QUESTIONS ANSWERED RELATED TO MEDICATIONS, PLAN OF CARE, AND EXPECTED OUTCOMES. 4. SAFETY PLAN DISCUSSED. VIRGIE PARKS NP May 06, 2018 14:29
--- NOTE | 2018-05-06 14:35 | NUR ---
TELEMED PT SPOKE WITH DR CHARLY CHESTER. NO NEW ORDERS RECEIVED. CONTINUE WITH PLAN OF CARE
--- NOTE | 2018-05-06 17:11 | NUR ---
PIRP P: ALTERED THOUGHT PROCESS I: MONITOR FOR CHANGES IN USUAL BEHAVIOR, ASSESS FOR DELUSIONS, REDIRECT WITH VERBALIZATION, GIVE CLEAR AND SIMPLE INSTRUCTIONS, REINFORCE APPROPRIATE BEHAVIORS, PROVIDE SAFE AND SUPPORTIVE ENVIRONMENT, R: PT STATES MOOD IS GOOD AND DENIES SI OR HALLUCINATIONS. PT REFUSED TO PLAY CARDS WITH US TODAY, BUT HAS REMAINED IN THE DAY ROOM WATCHING THE FOOTBALL GAME. NO BEHAVIORS NOTED, AND NO NEW ORDERS RECEIVED BY DR CHARLY CHESTER P: CONTINUE WITH PLAN OF CARE TO DISCHARGED ON Thursday05/08/18
[2018-05-06 20:20] VITALS: BP 123/78
[2018-05-06] MEDS: DESYREL PO SCH (20:36)
--- NOTE | 2018-05-07 04:19 | NUR ---
PIRP- P- ALTERED THOUGHT PROCESS I- PROVIDE MEDICATION ORDERED,PROVIDE SAFE AND SUPPORTIVE ENVIRONMENT AND Q 15 MIN. MONITORING R- PT. WAS ORIENTED TIMES 3 AND DENIES DEPRESSION AND ANXIETY AND DENIES SI . TOOK MEDICATION ORDERED. EXHIBITED NO INAPPROPRIATE BEHAVIORS. WATCHED BASKETBALL GAME ON TV. RESTING IN BED WITH EYES CLOSED AT THIS TIME. P- WILL CONTINUE WITH CURRENT TX. PLAN.
[2018-05-07 08:20] VITALS: BP 136/69
[2018-05-07] MEDS: RISPERDAL PO SCH ×2 (08:36→20:13)
[2018-05-07] MEDS ORDERED: TRAZ-124 PO (09:44)
[2018-05-07] MEDS ORDERED: RISP0.2518 PO (09:44)
--- NOTE | 2018-05-07 09:44 | PRM.PN ---
Mood: STABLE. DENIES DEPRESSION. Sleep: SLEPT 7.75 HOURS Appetite: GOOD Suidical thoughts: DENIES Homicidal thoughts: DENIES Recent stressors: RECENT HOSPITALIZATION Family support: GOOD Aggressive Behavior: NONE NOTED Ability to Perform ADL'sc: GOOD Psychotic sympstoms: NONE Manic Symptoms: NONE NOTED Living situation: ALONE Illicit Drug usec: DENIES Alcoholo use: DENIES Tobacco use: DENIES Family,PT,Surgical,&Current HX: (1) Dementia (2) Delusional disorder Anxity Symptoms: DENIES Anger/Irritablility: NONE NOTED Muscle Strength & Tone: WNL Gait & Station: WN Appearance: Well groomed/hygience, Casual attire, Normal weight, Appears age stated Attitude & Behaviour: Cooperative/Pleasant, Good eye contact Mood & Affect: Euthymic/appr/congruent Orientation: Fully oriented per interv Attention/Concentration: Good attention, Good concentration Speech: Reg rate/vol/rhyth/prosod Judgement/Insight: Fair judgement, Fair insight Thought Process: Linear/goal directed Language: Maltese Thought content/Abnormal/Psych: None/normal Fund of Knowledge: WNL Associations: WNL/Normal Associations Memory (recent and remote): Recent memory repaired Constitutional: None Neurological: None Psychiatric: None [place] I: DELUSIONAL DISORDER, DEMENTIA [place] II: DEFERRED [place] III: SEE MEDICAL CHART/PMH [place] IV: COGNITIVE DECLINE [place] V: 40 Assessment/Plan Assessment/Plan Patient History: Patient reports no known family medical history. Plan Vital Signs Date Time Temp Pulse Resp B/P (MAP) Pulse Ox O2 Delivery O2 Flow Rate FiO2 05/07/18 08:20 97.8 60 18 136/69 (91) 96 Room Air 97.8 Allergies Coded Allergies Type Severity Reaction Last Updated Verified No Known Allergies 04/30/18 No Intake and Output 05/07/18 07:01 Intake Total 1776 ml Balance 1776 ml Intake Oral 1776 ml # Voids 4 Problems Medical Problems: (1) Delusional disorder Status: Acute ICD Codes: F22 - Delusional disorders SNOMED: [id number] Problem Recorded: Apr 30, 2018 18:13 Last Edited By: Marcelino Chadwick MD - Gp on May 01, 2018 11:21 (2) Dementia Status: Acute ICD Codes: F03.90 - Unspecified dementia without behavioral disturbance SNOMED: [id number] Responsible Provider: Velasquez Salgado MD Problem Recorded: Apr 30, 2018 16:19 Last Edited By: Velasquez Salgado MD on May 01, 2018 11:04 THE PATIENT WAS SEEN BY VIRGIE PARKS VIA TELEMEDICINE EQUIPMENT ([facility]ED [facility]) ALONG WITH THE TREATMENT TEAM. HE IS DOING WELL OVERALL. HE DENIES DEPRESSION AND ANXIETY AT THIS TIME. HE IS EATING AND SLEEPING WELL. HE DENIES SI/HI/AV/VH. HE REPORTS HAVING GOOD ENERGY. HE IS VERY TALKATIVE. HE DENIES ANY SIDE EFFECTS WITH HIS MEDICATIONS. MOOD IS STABLE. ASSESSMENT: DELUSIONAL DISORDER, DEMENTIA PLAN: 1. CONTINUE BEHAVIORAL HEALTH MANAGEMENT. PLAN TO DISCHARGE TOMORROW WITH DAUGHTER. 2. CONTINUE CURRENT MEDICATIONS PRESCRIBED. STAFF AGREEABLE WITH PLAN 3. ALL PATIENT QUESTIONS ANSWERED RELATED TO MEDICATIONS, PLAN OF CARE, AND EXPECTED OUTCOMES. 4. SAFETY PLAN DISCUSSED. VIRGIE PARKS NP May 07, 2018 09:44
--- NOTE | 2018-05-07 17:49 | NUR ---
PIRP: P: altered thought process I: Provide medications as ordered by physician. Encourage attendance and participation of all groups. Allow patient to voice feelings and concerns. Assist patient in differentiating between internal and external reality. R: Patient has taken all medications as ordered and has been talkative and pleasant. Patient has been oriented x3. He is looking forward to being discharged tomorrow in care of his daughter. P: Continue current plan of care. Plans for discharge tomorrow.
[2018-05-07 19:48] VITALS: BP 146/87
[2018-05-07] MEDS: DESYREL PO SCH (20:13)
--- NOTE | 2018-05-08 04:52 | NUR ---
PIRP- P- ALTERED THOUGHT PROCESS, ALTERATION IN MOOD AND SLEEP DISTURBANCE I- PROVIDE SAFE AND SUPPORTIVE ENVIRONMENT,PROVIDE MEDICATION ORDERED,Q 15 MIN. MONITORING. R- ORIENTED TIMES THREE. DENIES DEPRESSION AND ANXIETY. DENIES SI TONIGHT. ATTENDED GROUP AND PARTICIPATED IN ACTIVITY. ATE SNACK. TOOK MEDICATION ORDERED. PLEASANT AFFECT. JOKES APPROPRIATELY WITH STAFF AND PEERS. INITIATED INTERACTION. HAS RESTED IN BED WITH EYES CLOSED FOR 4.5 HOURS TONIGHT. P- WILL CONTINUE WITH CURRENT TX. PLAN.
[2018-05-08 07:42] VITALS: BP 144/77
[2018-05-08] MEDS: RISPERDAL PO SCH (08:28)
--- NOTE | 2018-05-08 09:15 | PRM.PN ---
Mood: DENIES DEPRESSION. STABLE Sleep: SLEPT 6 HOURS Appetite: GOOD Suidical thoughts: DENIES Homicidal thoughts: DENIES Recent stressors: COGNITIVE DECLINE Family support: GOOD Aggressive Behavior: NONE Ability to Perform ADL'sc: GOOD Psychotic sympstoms: DENIES Manic Symptoms: NONE Living situation: ALONE Illicit Drug usec: NONE Alcoholo use: NONE Tobacco use: NONE Family,PT,Surgical,&Current HX: (1) Delusional disorder (2) Dementia Anxity Symptoms: DENIES ANXIETY. Anger/Irritablility: NONE NOTED Muscle Strength & Tone: WNL Gait & Station: WNL Appearance: Well groomed/hygience, Casual attire, Normal weight, Appears age stated Attitude & Behaviour: Cooperative/Pleasant Mood & Affect: Euthymic/appr/congruent Orientation: Fully oriented per interv Attention/Concentration: Good attention, Good concentration Speech: Reg rate/vol/rhyth/prosod Judgement/Insight: Good judgement, Good insight Thought Process: Linear/goal directed Language: Pashto Thought content/Abnormal/Psych: None/normal Fund of Knowledge: WNL Associations: WNL/Normal Associations Memory (recent and remote): Gross int/not form assess Constitutional: None Neurological: None Psychiatric: None [place] I: DELUSIONAL DISORDER, DEMENTIA [place] II: DEFERRED [place] III: SEE MEDICAL CHART/PMH [place] IV: COGNITIVE DECLINE [place] V: 45 Assessment/Plan Assessment/Plan Patient History: Patient reports no known family medical history. Plan Vital Signs Date Time Temp Pulse Resp B/P (MAP) Pulse Ox O2 Delivery O2 Flow Rate FiO2 05/08/18 07:42 97.6 60 18 144/77 (99) 96 Room Air 97.6 Allergies Coded Allergies Type Severity Reaction Last Updated Verified No Known Allergies 04/30/18 No Intake and Output 05/08/18 07:01 Intake Total 1654 ml Balance 1654 ml Intake Oral 1654 ml # Voids 1 Problems Medical Problems: (1) Delusional disorder Status: Acute ICD Codes: F22 - Delusional disorders SNOMED: [id number] Problem Recorded: Apr 30, 2018 18:13 Last Edited By: Marcelino Chadwick MD - Gp on May 01, 2018 11:21 (2) Dementia Status: Acute ICD Codes: F03.90 - Unspecified dementia without behavioral disturbance SNOMED: [id number] Responsible Provider: Velasquez Salgado MD Problem Recorded: Apr 30, 2018 16:19 Last Edited By: Velasquez Salgado MD on May 01, 2018 11:04 THE PATIENT WAS SEEN BY VIRGIE PARKS VIA TELEMEDICINE EQUIPMENT (SUPPORTED BY [facility]) ALONG WITH THE TREATMENT TEAM. HE REPORTS THAT HE IS DOING WELL. HE IS EATING AND SLEEPING WELL. HE DENIES SI/HI/ AV/AV. HE IS TOLERATING HIS MEDICATIONS WELL. HE DOES NOT APPEAR TO BE SEDATED. HE DENIES DEPRESSION AND ANXIETY. HE HAS NO ACUTE COMPLAINTS. MOOD IS STABLE. ASSESSMENT: DELUSIONAL DISORDER, DEMENTIA PLAN: 1. DISCHARGE TO HOME WITH DAUGHTER. 2. CONTINUE CURRENT MEDICATIONS PRESCRIBED. STAFF AGREEABLE WITH PLAN 3. ALL PATIENT QUESTIONS ANSWERED RELATED TO MEDICATIONS, PLAN OF CARE, AND EXPECTED OUTCOMES. 4. SAFETY PLAN DISCUSSED. VIRGIE PARKS NP May 08, 2018 09:15
[2018-05-08 13:50] VITALS: BP 144/77
--- NOTE | 2018-05-08 13:50 | NUR ---
Discharge : Patient's daughter and grandson arrived for discharge of patient into their care. Patient's prescriptions called in to [facility]. Patient is to follow up with [facility] for psychiatric and medical needs. Patient was escorted out by this nurse. He was ambulatory with all his personal belongings.
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
--- NOTE | 2018-05-21 12:40 | NUR ---
Co-Signature For MT Assessment I, LANI Carter am co-signing Music Therapy Activities Assessment with completion of this attached note. Signed: 05/21/18 at 1240 by LANI Carter OT Addendum: 05/21/18 at 1240 by LANI Carter OT Amended: Links added.
== END 2018-05-08 13:50 | disposition home or self-care (01) | DRG 884 ==
LOC: ER 15:54 → GP 17:31 → EEVIPCON 17:31
PROVIDERS: ADMIT Psychiatry & Neurology Psychiatry; ATTEND Psychiatry & Neurology Psychiatry
DX: F03.91 Unspecified dementia, unspecified severity, with behavioral disturbance (principal); F22 Delusional disorders; F41.1 Generalized anxiety disorder; F31.9 Bipolar disorder, unspecified; E11.9 Type 2 diabetes mellitus without complications; G47.00 Insomnia, unspecified; I10 Essential (primary) hypertension; Z85.46 Personal history of malignant neoplasm of prostate; Z92.21 Personal history of antineoplastic chemotherapy
CPT/HCPCS: 36415; 71045; 80053; 80061; 80307; 81000; 82550; 82607; 83036; 83880; 84443; 84484; 85025; 85610; 85730; 87086; 93005; 97150; 97165; 99285; G0378; G8987; G8988